=== PATIENT | female | born 1960 | race Caucasian/White ===

== ENCOUNTER → 2018-12-04 | Outpatient (CLI) | payer MEDICARE ==
[2015-12-09 19:35] VITALS: BP 130/60
--- NOTE | 2018-12-04 14:30 | RAD ---
EXAM: Left great toe, 3 views. HISTORY: Trauma. COMPARISON: None. FINDINGS: 3 views of the left great toe are obtained. There is a mildly displaced fracture the proximal aspect of the first distal phalanx. There is soft tissue swelling. No foreign body is seen. IMPRESSION: Mildly displaced fracture of the first distal phalanx. Electronically signed by: Feli Crisostomo MD (12/04/2018 2:27 PM) [id number]
== END | disposition home or self-care (01) ==
LOC: DXRAD 13:57
PROVIDERS: ATTEND Registered Nurse
DX: S92.422A Displaced fracture of distal phalanx of left great toe, initial encounter for closed fracture (principal); X58.XXXA Exposure to other specified factors, initial encounter; Y93.89 Activity, other specified; Y92.89 Other specified places as the place of occurrence of the external cause; Y99.8 Other external cause status
CPT/HCPCS: 73660

== ENCOUNTER → 2020-09-21 | Outpatient (CLI) | payer MEDICARE ==
[2015-12-09 19:35] VITALS: BP 130/60
--- NOTE | 2020-09-21 13:08 | RAD ---
EXAM: Right ankle 2 views. HISTORY: Pain after injury. COMPARISON: None. FINDINGS: Two views of the right ankle are obtained. There is mild soft tissue swelling laterally. No fractures are identified. Alignment is normal. Joint spaces are maintained. IMPRESSION: 1. Mild soft tissue swelling laterally. No fracture. Electronically signed by: Clovis Vaz MD (09/21/2020 1:06 PM) [id number]
== END ==
LOC: RAD 12:38
PROVIDERS: ATTEND Family Medicine
DX: M25.571 Pain in right ankle and joints of right foot (principal); M79.89 Other specified soft tissue disorders
CPT/HCPCS: 73600